=== PATIENT | female | born 1990 | race Caucasian/White ===

== ENCOUNTER → 2020-09-28 | Outpatient (CLI) | payer OTHER | LOC: SLEEP 14:24 | DX: G47.33 Obstructive sleep apnea (adult) (pediatric) (principal) | CPT/HCPCS: 95810 ==

== ENCOUNTER → 2020-11-03 | Outpatient (CLI) | payer OTHER ==
[2020-11-03 15:49] LABS: HEMOGLOBIN 14.3 gm/dl (12.3-15.3); RED BLOOD COUNT 4.72 M/UL (4.00-5.10); WHITE BLOOD COUNT 10.5 K/UL (4.5-11.0)
[2020-11-03 16:34] LABS: BUN/CREATININE RATIO 12 (0-10)
[2020-11-04 09:15] LABS: RHEUMATOID ARTHRITIS FACTOR <10.0 IU/mL (0.0-13.9)
[2020-11-04 11:15] LABS: HBSAG SCREEN Negative (Negative)
[2020-11-05 00:07] LABS: CCP ANTIBODIES IGG/IGA 2 units (0-19)
[2020-11-05 07:11] LABS: HEP B CORE AB, TOT Negative (Negative)
[2020-11-05 08:14] LABS: HCV AB 0.1 (0.0-0.9)
== END ==
LOC: LAB 13:54
PROVIDERS: Internal Medicine
DX: L81.9 Disorder of pigmentation, unspecified (principal); R53.83 Other fatigue; M25.50 Pain in unspecified joint; R20.2 Paresthesia of skin; Z11.59 Encounter for screening for other viral diseases
CPT/HCPCS: 36415; 80053; 82607; 82728; 82746; 83520; 84439; 84443; 85025; 86200; 86431; 86704; 86803; 87340